=== PATIENT | male | born 1955 | race Caucasian/White ===

== ENCOUNTER 2019-08-04 03:27 | Inpatient (IN) ==
[2019-08-04] MEDS ORDERED: Aspirin 81 MG TAB.CHEW PO STA (03:48)
[2019-08-04 04:06] LABS: Hematocrit 50.5 % (37.5-50.1); Mean Corpuscular HGB Conc 33.7 g/dL (31.6-35.5); Mean Corpuscular Hemoglobin 30.9 pg (28.0-33.3); Mean Corpuscular Volume 91.8 fL (83.0-100.0); Mean Platelet Volume 10.4 fL (9.4-12.4); Platelet Count 299 K/mcL (140-400); White Blood Count 10.3 K/mcL (4.3-11.1)
[2019-08-04] MEDS ORDERED: Furosemide 40 MG/4 ML VIAL IVP ONE (04:31)
[2019-08-04] MEDS ORDERED: DilTIAZem 50 MG in 0.9 % Sodium Chloride 40 ML IVC SCH (04:45)
[2019-08-04 04:48] LABS: BUN/Creatinine Ratio 19 (6-26); Blood Urea Nitrogen 19 mg/dL (8-23); Calcium 9.6 mg/dL (8.6-10.3); Carbon Dioxide 20 mEq/L (23-29); Chloride 105 mEq/L (98-107); Glucose 136 mg/dL (70-105); Osmolality,Calculated 290 (280-300); Potassium 3.6 mEq/L (3.5-5.1); Sodium 138 mEq/L (136-145); Troponin I < 0.03 ng/mL (< 0.04); eGFR For African Americans > 60 (> 60); eGFR For Non-African Americans > 60 (> 60)
[2019-08-04] MEDS ORDERED: Ondansetron 4 MG/2 ML VIAL IVP PRN (05:22)
[2019-08-04] MEDS ORDERED: Naloxone 0.4 MG/ML INJ IVP PRN (05:22)
[2019-08-04 06:12] LABS: Thyroid Stimulating Hormone 1.881 mcIU/mL (0.340-5.600)
[2019-08-04] MEDS: Metoprolol XL (24 HR) Succ 50 MG TAB.ER.24H PO SCH (07:05)
[2019-08-04] MEDS: Apixaban 5 MG TABLET PO SCH ×2 (07:35→21:43)
[2019-08-04] MEDS: Nicotine 14 MG PATCH.TD24 TD SCH (14:15)
[2019-08-04] MEDS: Furosemide 40 MG/4 ML VIAL IVP SCH (16:53)
[2019-08-04] MEDS ORDERED: Perflutren Lipid Microsphere 1.3 ML in 0.9 % Sodium Chloride 8.7 ML IVP ONE (19:54)
[2019-08-05 04:44] LABS: Basophils # 0.1 K/mcL (0.0-0.2); Basophils % 0.6 %; Eosinophils # 0.1 K/mcL (0.0-0.6); Eosinophils % 0.8 %; Hematocrit 49.4 % (37.5-50.1); Hemoglobin 16.7 g/dL (12.9-16.9); Immature Granulocytes % 0.4 % (0-4); Lymphocytes # 2.7 K/mcL (0.6-4.6); Lymphocytes % 22.4 %; Mean Corpuscular HGB Conc 33.8 g/dL (31.6-35.5); Mean Corpuscular Hemoglobin 31.4 pg (28.0-33.3); Mean Corpuscular Volume 92.9 fL (83.0-100.0); Mean Platelet Volume 10.2 fL (9.4-12.4); Monocytes # 1.2 K/mcL (0.0-1.3); Monocytes % 10.4 %; Neutrophils # 7.8 K/mcL (1.6-8.9); Platelet Count 281 K/mcL (140-400); Red Blood Count 5.32 M/mcL (4.19-5.50); Red Cell Distribution Width 12.9 % (11.5-14.5); Segmented Neutrophils % 65.4 %
[2019-08-05 05:11] LABS: BUN/Creatinine Ratio 16 (6-26); Blood Urea Nitrogen 15 mg/dL (8-23); Calcium 9.1 mg/dL (8.6-10.3); Carbon Dioxide 25 mEq/L (23-29); Chloride 104 mEq/L (98-107); Glucose 103 mg/dL (70-105); Osmolality,Calculated 289 (280-300); Potassium 3.6 mEq/L (3.5-5.1); Sodium 139 mEq/L (136-145); eGFR For African Americans > 60 (> 60); eGFR For Non-African Americans > 60 (> 60)
[2019-08-05] MEDS: Nicotine 14 MG PATCH.TD24 TD SCH (07:27)
[2019-08-05] MEDS: Apixaban 5 MG TABLET PO SCH (07:28)
[2019-08-05] MEDS: Metoprolol XL (24 HR) Succ 50 MG TAB.ER.24H PO SCH (07:28)
[2019-08-05] MEDS: Furosemide 40 MG/4 ML VIAL IVP SCH ×2 (07:28→20:10)
[2019-08-05] MEDS ORDERED: Nicotine 2 MG GUM BC PRN (14:47)
[2019-08-05] MEDS ORDERED: Nicotine 14 MG PATCH.TD24 TD ONE (15:00)
[2019-08-05] MEDS ORDERED: Metoprolol XL (24 HR) Succ 50 MG TAB.ER.24H PO ONE (15:30)
[2019-08-06 02:08] LABS: Basophils # 0.1 K/mcL (0.0-0.2); Basophils % 0.9 %; Eosinophils # 0.1 K/mcL (0.0-0.6); Hematocrit 52.3 % (37.5-50.1); Hemoglobin 16.9 g/dL (12.9-16.9); Immature Granulocytes % 0.4 % (0-4); Lymphocytes # 2.6 K/mcL (0.6-4.6); Lymphocytes % 24.5 %; Mean Corpuscular HGB Conc 32.3 g/dL (31.6-35.5); Mean Corpuscular Hemoglobin 30.1 pg (28.0-33.3); Mean Corpuscular Volume 93.2 fL (83.0-100.0); Mean Platelet Volume 10.7 fL (9.4-12.4); Monocytes % 9.6 %; Neutrophils # 6.7 K/mcL (1.6-8.9); Platelet Count 277 K/mcL (140-400); Red Blood Count 5.61 M/mcL (4.19-5.50); Red Cell Distribution Width 13.1 % (11.5-14.5); Segmented Neutrophils % 63.6 %; White Blood Count 10.5 K/mcL (4.3-11.1)
[2019-08-06 02:24] LABS: BUN/Creatinine Ratio 21 (6-26); Blood Urea Nitrogen 24 mg/dL (8-23); Calcium 9.1 mg/dL (8.6-10.3); Carbon Dioxide 27 mEq/L (23-29); Chloride 102 mEq/L (98-107); Glucose 104 mg/dL (70-105); Osmolality,Calculated 292 (280-300); Potassium 3.4 mEq/L (3.5-5.1); Sodium 139 mEq/L (136-145); eGFR For African Americans > 60 (> 60); eGFR For Non-African Americans > 60 (> 60)
[2019-08-06] MEDS: Furosemide 40 MG/4 ML VIAL IVP SCH (08:41)
[2019-08-06] MEDS ORDERED: Metoprolol XL (24 HR) Succ 50 MG TAB.ER.24H PO SCH (09:00)
[2019-08-06] MEDS ORDERED: lisinopriL 20 MG TABLET PO SCH ×2 (09:00)
[2019-08-06] MEDS ORDERED: *HR* Heparin 10,000 UNIT/10 ML VIAL ONE ×2 (09:11→09:55)
[2019-08-06] MEDS ORDERED: Nitroglycerin 1,000 MCG/10 ML VIAL IV ONE (09:11)
[2019-08-06] MEDS ORDERED: 0.9 % Sodium Chloride 2,000 ML ONE (09:11)
[2019-08-06] MEDS ORDERED: *HR* Midazolam HCl 5 MG/5 ML VIAL IVP ONE (09:11)
[2019-08-06] MEDS ORDERED: ISOVUE-370 200 ML INFUS..BTL ONE (09:11)
[2019-08-06] MEDS ORDERED: Heparin 1,000 UNITS/500 mL 500 ML ONE (09:11)
[2019-08-06 11:28] LABS: INR 1.4; Prothrombin Time 15.7 Seconds (9.4-12.1)
[2019-08-06 12:18] VITALS: BP 112/77
[2019-08-06] MEDS ORDERED: Apixaban 5 MG TABLET PO SCH (21:00)
== END 2019-08-06 15:09 | disposition home or self-care (01) ==
LOC: 2NENU 03:27 → EMEROOARM 03:27 → 2NNU 06:12
PROVIDERS: ADMIT Internal Medicine; ATTEND Internal Medicine